=== PATIENT | male | born 1930 | race Caucasian/White ===

== ENCOUNTER 2017-03-19 16:29 | Emergency (ER) | payer OTHER ==
[2017-03-19] MEDS ORDERED: ASPIRIN 81 MG CHEWABLE CTB ONE (16:39)
[2017-03-19] MEDS: NITROGLYCERIN 0.4 MG TAB SL PRN ×2 (16:39→16:57)
[2017-03-19] MEDS ORDERED: NITROGLYCERIN 0.4 MG TAB SL ONE (16:39)
[2017-03-19 16:59] VITALS: PULSE 42; TEMP 98; O2SAT 98
[2017-03-19 17:00] LABS: BASOPHILS % (AUTO) 1 % (0-3); EOSINOPHILS % (AUTO) 1 % (0-9); HEMATOCRIT 37 % (39-53); MEAN CORPUSCULAR VOLUME 96 fL (80-100); MONOCYTES % (AUTO) 8.4 % (0-12); NEUTROPHILS % (AUTO) 72.8 % (37-80)
[2017-03-19] MEDS ORDERED: MORPHINE SULFATE 10 MG/ML SOL IV ONE (17:08)
[2017-03-19] MEDS ORDERED: MORPHINE SULFATE 10 MG/ML SOL ONE (17:11)
[2017-03-19 17:12] LABS: CALCIUM 9.1 mg/dl (8.5-10.1); POTASSIUM 3.9 mMol/L (3.5-5.1)
[2017-03-19 17:53] VITALS: BP 108/61; RESP 21
[2017-03-20] MEDS ORDERED: ASPIRIN 325 MG TAB PO SCH (09:00)
== END 2017-03-19 17:50 | disposition home or self-care (01) | DRG 313 ==
LOC: ED 16:29
DX: R07.9 Chest pain, unspecified (principal)
CPT/HCPCS: 71010; 80048; 83880; 84484; 85025; 93005; 96374; 99284; J2270

== ENCOUNTER 2017-05-04 12:13 | Emergency (ER) | payer OTHER ==
[2017-05-04] MEDS ORDERED: AMIODARONE 50 MG/ML SOL IVP ONE (12:15)
[2017-05-04] MEDS ORDERED: MAGNESIUM SULFATE 5 GM/10 ML SOL IV ONE (12:15)
[2017-05-04] MEDS ORDERED: SODIUM CHLORIDE 0.9% 1000ML 1,000 ML IV SCH (12:15)
[2017-05-04] MEDS: SODIUM CHLORIDE 0.9% FLUSH 10 ML SOL IV PRN ×2 (12:17→12:21)
[2017-05-04] MEDS: EPINEPHRINE HCL 0.1 MG/ML SOL IV PRN ×3 (12:17→12:24)
[2017-05-04 12:37] LABS: HEMATOCRIT 43 % (39-53); MEAN CORPUSCULAR HGB CONC 33.3 gm/dl (32.0-36.0)
[2017-05-04] MEDS ORDERED: MAGNESIUM SULFATE 5 GM/10 ML SOL ONE (12:40)
[2017-05-04] MEDS ORDERED: AMIODARONE 50 MG/ML SOL ONE (12:41)
[2017-05-04] MEDS ORDERED: EPINEPHRINE 1:1000 AMP 1 MG/ML SOL ONE (12:41)
[2017-05-04] MEDS ORDERED: EPINEPHRINE 1:10,000 PREFILL 0.1 MG/ML SOL ONE (12:42)
[2017-05-04 12:55] LABS: CALCIUM 8.9 mg/dl (8.5-10.1)
[2017-05-04 12:57] LABS: MEAN CORPUSCULAR VOLUME 103 fL (80-100)
[2017-05-04 12:58] LABS: POTASSIUM 2.7 mMol/L (3.5-5.1)
[2017-05-04 12:59] VITALS: BP 141/38; PULSE 102; TEMP 96.1; O2SAT 75
[2017-05-04 13:00] LABS: ANISOCYTOSIS MOD AMT; BASOPHILS % (MANUAL) 0 % (0-3); EOSINOPHILS % (MANUAL) 0 % (0-9); LYMPHOCYTES % (MANUAL) 24 % (10-50)
== END 2017-05-04 12:24 | disposition expired | DRG 280 ==
LOC: ED 12:13
DX: I21.9 Acute myocardial infarction, unspecified (principal); I46.2 Cardiac arrest due to underlying cardiac condition
CPT/HCPCS: 36415; 80048; 83880; 84484; 85007; 85027; 85610; 96374; 96375; 99291; J0282; J3475